=== PATIENT | female | born 1985 | race Caucasian/White ===

== ENCOUNTER 2017-11-02 02:40 | Emergency (ER) | payer MEDICAID ==
[~2017-11-02] VITALS: Ht 157.5 cm; Wt 72.7 kg
[2017-11-02 03:21] LABS: URINE HCG NEGATIVE (NEG)
[2017-11-02 03:30] LABS: CLARITY,URINE SLIGHTLY CLOUDY (Clear); COLOR,URINE AMBER (Yellow); GLUCOSE, URINE NEGATIVE (Neg); KETONES,URINE NEGATIVE (Neg); LEUKOCYTE ESTERASE ,URINE NEGATIVE (Neg); NITRITES, URINE NEGATIVE (Neg); OCCULT BLOOD,URINE LARGE (Neg); PROTEIN,URINE TRACE mg/dl (Neg); UROBILINOGEN,URINE 0.2 E.U/dL (0.2-1.0)
[2017-11-02 03:33] LABS: UA COLLECTION TYPE CLN CATCH MIDSTREAM
[2017-11-02 03:36] LABS: RBC,URINE 20-50 /HPF (0-2)
[2017-11-02 03:37] LABS: BACTERIA,URINE 1+ /HPF (Neg); HYALINE CASTS 0-3 /LPF (NEGATIVE); MUCUS STRANDS MANY /LPF (Neg); SQUAMOUS EPITHELIAL CELL,UR FEW /LPF (FEW)
[2017-11-02 03:38] LABS: TRICHOMONAS,URINE FEW /HPF (NEGATIVE)
[2017-11-02] MEDS ORDERED: phenazopyridine 100mg tablet PO ONE (04:40)
[2017-11-02] MEDS ORDERED: ciprofloxacin 250mg tablet PO ONE (04:40)
[2017-11-02] MEDS ORDERED: PHEN-716 PO (04:42)
[2017-11-02] MEDS ORDERED: CIPR-230 PO (04:42)
[2017-11-02] MEDS ORDERED: IBUP-1984 PO (04:42)
[2017-11-02 04:52] VITALS: BP 128/84
== END 2017-11-02 04:54 | disposition home or self-care (01) ==
LOC: ER 02:41
DX: N39.0 Urinary tract infection, site not specified (principal); I10 Essential (primary) hypertension; F17.200 Nicotine dependence, unspecified, uncomplicated; Z79.899 Other long term (current) drug therapy
CPT/HCPCS: 81001; 81025; 87077; 87088; 87186; 99284